=== PATIENT | male | born 1930 | race Hispanic/Latino ===

== ENCOUNTER 2016-12-08 08:31 | Outpatient (CLI) | payer MEDICARE ==
[2016-12-08 18:27] LABS: Sex Hormone Binding Globulin 37.3 nmol/L (11-78); Testosterone, Free 24.3 pg/mL (47-244); Testosterone, Total 140.6 ng/dL (221-716)
== END 2016-12-08 08:32 | disposition home or self-care (01) ==
LOC: NAV LAB 08:31
PROVIDERS: ATTEND Family Medicine
DX: N64.4 Mastodynia (principal)
CPT/HCPCS: 36415; 82672; 83001; 83002; 84146; 84270; 84403

== ENCOUNTER 2017-06-29 13:29 | Outpatient (CLI) | payer MEDICARE ==
[2017-06-29 14:17] LABS: Hemoglobin A1c 7.5 % (4.0-6.0)
== END 2017-06-29 13:30 | disposition home or self-care (01) ==
LOC: NAV LAB 13:29
PROVIDERS: ATTEND Family Medicine
DX: B35.1 Tinea unguium (principal); E11.9 Type 2 diabetes mellitus without complications; B35.6 Tinea cruris
CPT/HCPCS: 36415; 83036